=== PATIENT | male | born 1995 | race Caucasian/White ===

== ENCOUNTER 2017-01-30 14:35 | Inpatient (IN) | payer OTHER ==
[~2017-01-30] VITALS: Ht 188 cm; Wt 81.6 kg
--- NOTE | 2017-01-30 16:50 | NUR ---
Admission Note VS: BP: 122/74 HR: 78, SpO2: 98% RA, RR: 18, Temp: 98.2 Pain:0 Height:6'2" Weight: 180LB Allergies: NKA Pt is a 21 y/o male admitted to [facility] on 01/30/17 at 1650. Pt has been admitted for dependence of Heroin and Meth under the care of Dr Bailey. Pt denies suicidal and homicidal ideations at this time. Pt denies Chest Pain and SOB. Pt brought Seroquel 200mg with him. Pt reports taking it nightly to help him sleep. PT reports living at a sober living prior to his relapse. Upon assessment pt' presents with intact skin integrity. PT denies history of falls. COWS 2 upon admission for mild anxiety. A/Ox4 and able to answer questions necessary for the admission process. Pt denies previous hospitalizations and past medical history. Pt does not have a PCP. Pt is Full Code. VS WNL, Regular Diet. Pt reports paternal alcohol abuse. Pt denies hx of seizures. Pt denies any history of suicide attempts. Breathing is even and unlabored, SpO2 is 98% on RA. Pt ambulates with steady gait. Pt reports regular daily BM. LBM on 01/28/17. Pt reports that he smokes a pack a day. PT reports being unemployed at this time, pt states " I lost my job due to showing up to work while high". Dr. Bailey has been notified, pt has not been placed on a taper at this time and his symptoms will be managed by PRN medications. Urine has been collected for UDS. All needs have been met. Pt has been oriented to the room and the unit. All safety measures in place per hospital policy. Bed in lowest position, side rails up x2 and padded, call-light within reach. Will continue to monitor. Substance Abuse: Heroin: 1g IV daily for 5 days. Last use: 1g IV 01/30/17 at 1400 Meth: 3g IV and smoke for 5 days. Last use : 3g IV 01/29/17 in am Addendum: 01/30/17 at 1816 by PATRICK ROJO RN PT reports being at [facility] detox on 01/22/17. Pt reports receiving Phenobarbital there for 3 days. Last received on 01/24/17.
[2017-01-30] MEDS ORDERED: DICYCLOMINE HCL 20 MG TABLET PO PRN (17:00)
[2017-01-30] MEDS ORDERED: MAG HYDROX/AL HYDROX/SIMETH 30 ML LIQUID UDC PO PRN (17:00)
[2017-01-30] MEDS ORDERED: ONDANSETRON ODT 4 MG TAB.RAPDIS SL PRN (17:00)
[2017-01-30] MEDS ORDERED: MIRALAX 17 GM POWD.PACK PO PRN (17:00)
[2017-01-30] MEDS ORDERED: METHOCARBAMOL 750 MG TABLET PO PRN (17:00)
[2017-01-30] MEDS ORDERED: MAGNESIUM HYDROXIDE 30 ML LIQUID UDC PO PRN (17:00)
[2017-01-30] MEDS ORDERED: diphenhydrAMINE 50 MG CAPSULE PO PRN (17:00)
[2017-01-30] MEDS ORDERED: ACETAMINOPHEN 325 MG TABLET PO PRN (17:00)
[2017-01-30] MEDS ORDERED: LOPERAMIDE HCL 2 MG CAPSULE PO PRN ×2 (17:00)
[2017-01-30] MEDS ORDERED: CLONIDINE HCL 0.1 MG TABLET PO PRN (17:00)
[2017-01-30] MEDS ORDERED: ONDANSETRON 4 MG/2 ML VIAL IM PRN (17:00)
[2017-01-30] MEDS ORDERED: HYDROXYZINE PAMOATE 25 MG CAPSULE PO PRN (17:00)
[2017-01-30 17:34] LABS: *AMPHETAMINE, URINE NEGATIVE (NEGATIVE); *BARBITURATE, URINE POSITIVE (NEGATIVE); *CANNABINOID, URINE NEGATIVE (NEGATIVE); *COCCAINE, URINE NEGATIVE (NEGATIVE); *OPIATE, URINE POSITIVE (NEGATIVE); *PHENCYCLIDINE SCREEN,URINE NEGATIVE (NEGATIVE)
[2017-01-30 17:43] LABS: BASOPHILS # (AUTO) 0.1 K/uL (0.0-8.0); EOSINOPHILS # (AUTO) 0.2 K/uL (0.0-0.7); EOSINOPHILS % (AUTO) 3.4 % (0.0-7.0); HEMATOCRIT 46.8 % (40-50); HEMOGLOBIN 15.3 G/DL (14.0-18.0); LYMPHOCYTES # (AUTO) 1.9 K/UL (0.8-4.8); LYMPHOCYTES % (AUTO) 38.6 % (20.5-51.5); MEAN CORPUSCULAR HEMOGLOBIN 26.6 UUG (27.0-31.0); MEAN CORPUSCULAR HGB CONC 33 g/dL (32.0-37.0); MEAN CORPUSCULAR VOLUME 81.3 FL (82.0-92.0); MONOCYTES # (AUTO) 0.4 K/UL (0.1-1.30); MONOCYTES % (AUTO) 7.5 % (0.0-11.0); NEUTROPHILS # (AUTO) 2.4 K/UL (1.8-8.9); NEUTROPHILS % (AUTO) 49.5 % (38.5-71.5); PLATELET COUNT (AUTO) 319 K/UL (150-450); RED BLOOD CELL COUNT(AUTO) 5.76 MIL/UL (4.7-6.1)
[2017-01-30 17:53] LABS: ALANINE AMINOTRANSFERASE 21 U/L (16-63); ALKALINE PHOSPHATASE 78 U/L (50-136); ASPARTATE AMINOTRANSFERASE 18 U/L (15-37); BILIRUBIN,TOTAL 0.3 mg/dL (0.2-1.0); CARBON DIOXIDE 30 mmol/L (21-32); CHLORIDE 103 mmol/L (98-107); CREATININE 1.2 mg/dL (0.6-1.3); GLUCOSE 72 mg/dL (74-106); POTASSIUM 3.8 mmol/L (3.5-5.1); TOTAL PROTEIN, SERUM 7.9 g/dL (6.4-8.2); UREA NITROGEN, BLOOD 10 mg/dL (7-18)
[2017-01-30 17:59] LABS: ETHANOL < 3 MG/DL (0-0)
[2017-01-30] MEDS ORDERED: QUET200T PO (18:36)
--- NOTE | 2017-01-30 18:57 | NUR ---
End of Shift Endorsement given to nightshift nurse. Pt is a 21 y/o male admitted to [facility] on 01/30/17 at 1650. Pt has been admitted for dependence of Heroin and Meth under the care of Dr Bailey. Pt denies suicidal and homicidal ideations at this time. Pt denies Chest Pain and SOB. Pt brought Seroquel 200mg with him. Pt reports taking it nightly to help him sleep. PT reports living at a sober living prior to his relapse. Upon assessment pt' presents with intact skin integrity. PT denies history of falls. COWS 2 upon admission for mild anxiety. A/Ox4 and able to answer questions necessary for the admission process. Pt denies previous hospitalizations and past medical history. Pt does not have a PCP. Pt is Full Code. VS WNL, Regular Diet. Pt reports paternal alcohol abuse. Pt denies hx of seizures. Pt denies any history of suicide attempts. Breathing is even and unlabored, SpO2 is 98% on RA. Pt ambulates with steady gait. Pt reports regular daily BM. LBM on 01/28/17. Pt reports that he smokes a pack a day. PT reports being unemployed at this time, pt states " I lost my job due to showing up to work while high". Dr. Bailey has been notified, pt has not been placed on a taper at this time and his symptoms will be managed by PRN medications. Urine has been collected for UDS. All needs have been met. Pt has been oriented to the room and the unit. All safety measures in place per hospital policy. Bed in lowest position, side rails up x2 and padded, call-light within reach. Will continue to monitor. Substance Abuse: Heroin: 1g IV daily for 5 days. Last use: 1g IV 01/30/17 at 1400 Meth: 3g IV and smoke for 5 days. Last use : 3g IV 01/29/17 in am
--- NOTE | 2017-01-30 19:20 | NUR ---
START OF SHIFT Patient is 21-year-old male admitted on 01/30/17 for heroin and meth dependency. Patient denies any past medical history. Patient is currently not on any tapers, only PRN medications. Upon assessment, patient is alert and oriented x4, denying any distress or discomfort. Patient is on fall precautions, safety measures in place, call light within reach. Will continue to monitor. Addendum: 01/31/17 at 0609 by LATRICIA ERICKSON LVN Patient is FULL code status, NKA, and on regular diet.
[2017-01-30 20:00] VITALS: BP 116/74
[2017-01-30] MEDS ORDERED: BUPRENORPHINE HCL 2 MG TAB.SUBL SL PRN (21:00)
[2017-01-30] MEDS: GABAPENTIN 300 MG CAPSULE PO SCH (21:13)
[2017-01-30] MEDS: QUETIAPINE FUMARATE 200 MG TABLET PO SCH (21:13)
[2017-01-30] MEDS ORDERED: QUETIAPINE FUMARATE 200 MG TABLET ONE (21:25)
[2017-01-31] VITALS: BP 112/55
--- NOTE | 2017-01-31 | NUR ---
MIDNIGHT CIWA DEFERRED Patient is asleep, unable to score CIWA at this time. To be assessed when patient is awake, per protocol. Patient's breathing is even and unlabored. Safety measures in place, call light within reach, will continue monitor.
[2017-01-31 04:00] VITALS: BP 113/61
--- NOTE | 2017-01-31 07:10 | NUR ---
Start of Shift Endorsement received from nightshift nurse. Pt is a 21 y/o male admitted for heroin and meth dependence. Pt has not been placed on a taper. Pt will be treated by PRN medications. PT did not receive any PRN medications. Pt is tolerating the detox AEB COWS 2 at 1999. Pt reports sleeping 8 hours. VS WNL. Full Code. PT is alert and oriented x4. Pt is in STABLE condition at this time. Remains compliant with medication and diet regimen. All needs have been met, All safety measures in place per hospital policy. Bed in lowest position, side rails up x2, call-light within reach. Will continue to monitor
--- NOTE | 2017-01-31 07:20 | NUR ---
END OF SHIFT Patient is 21-year-old male admitted on 01/30/17 for heroin and meth dependency. Patient denies any past medical history. Patient is FULL code, NKA, and on regular diet. Last COWS score 2, no PRNs given during shift. Patient is currently not on any tapers. Patient slept a total of 8 hrs, intake of 500mL, void x1 stool x0. Patient is on fall precautions, safety measures in place, call light within reach. Will endorse to day shift.
[2017-01-31 08:00] VITALS: BP 134/72
[2017-01-31] MEDS ORDERED: TUBERCULIN,PURIF.PROT.DERIV. 5 TU/0.1 ML TEST ID ONE (09:00)
[2017-01-31] MEDS: GABAPENTIN 300 MG CAPSULE PO SCH ×2 (09:19→20:58)
[2017-01-31 12:00] VITALS: BP 116/65
[2017-01-31] MEDS: BUPRENORPHINE HCL 2 MG TAB.SUBL SL SCH ×3 (13:40→20:59)
[2017-01-31 16:00] VITALS: BP 134/83
--- NOTE | 2017-01-31 19:21 | NUR ---
End of Shift Endorsement given to nightshift nurse. Pt is a 21 y/o male admitted for heroin and meth dependence. Pt has been placed on a modified Subutex taper. Pt is moderately withdrawing at this time AEB COWS 12. PT did not receive any PRN medications. Pt participated in groups and activities. Intake: 3247, Void x4, BM x0. Pt reports sleeping 8 hours. VS WNL. Full Code. PT is alert and oriented x4. Pt is in STABLE condition at this time. Remains compliant with medication and diet regimen. All needs have been met, All safety measures in place per hospital policy. Bed in lowest position, side rails up x2, call-light within reach. Will continue to monitor
[2017-01-31 20:00] VITALS: BP 137/79
--- NOTE | 2017-01-31 20:00 | NUR ---
Start of Shift Pt is a 21 year old male admitted for Opiate dependence, placed modified Subutex taper. Pt reported using Heroin IV 1g/daily and methamphetamine 3g/daily. Pt denies any pat medical history. NKA, regular diet, fall precautions and full code. Upon assessment, pt reports feeling anxious, reports muscle aches, chills, tremors felt upon touch, skin clammy/flushed, pt unable to sit still, respirations even/unlabored, denies SOB/chest pain, denies n/v/d, medications due. Safety measures in place, call light within reach, side rails up x2, bed locked and in low position. Will continue to monitor
[2017-01-31] MEDS: QUETIAPINE FUMARATE 200 MG TABLET PO SCH (20:58)
[2017-02-01] VITALS: BP_SYST 110; BP_SYST 121; BP_DIAS 56; BP_DIAS 60
--- NOTE | 2017-02-01 04:00 | NUR ---
Pt refused to be woken up for 0400 VS. COWS deferred due to pt sleeping To assess COWS while pt is awake as ordered. Safety measures in place, will continue to monitor.
--- NOTE | 2017-02-01 04:00 | NUR ---
Pt refused to be woken up for 0400 VS. LEYLAWA deferred due to pt sleeping To assess COWS while pt is awake as ordered. Safety measures in place, will continue to monitor. Addendum: 02/01/17 at 0530 by MYRIAM ROMERO RN INCORRECT POST
--- NOTE | 2017-02-01 07:00 | NUR ---
End of Shift Pt is a 21 year old male admitted for Opiate dependence, placed modified Subutex taper. Pt reported using Heroin IV 1g/daily and methamphetamine 3g/daily. Pt denies any past medical history. NKA, regular diet, fall precautions and full code. During shift, pt reports feeling anxious, reported muscle aches, chills, tremors felt upon touch, skin clammy/flushed, pt unable to sit still - scheduled taper medications administered, COWS 7. No PRN medications administered during shift. Pt slept for 4 hours, intake of 1100 ml PO, voids x2 and stool x0. Safety measures in place, call light within reach, side rails up x2, bed locked and in low position. Endorsed to day shift nurse.
--- NOTE | 2017-02-01 07:20 | NUR ---
Start of Shift Endorsement received from nightshift nurse. Pt is a 21 y/o male admitted for heroin and meth dependence. Pt has been placed on a modified Subutex taper. Pt did not receive any PRN medications. Pt is tolerating the detox and moderately withdrawing AEB COWS 7 at midnight. Pt reports sleeping 4 hours. VS WNL. Full Code. PT is alert and oriented x4. Pt is in STABLE condition at this time. Remains compliant with medication and diet regimen. All needs have been met, All safety measures in place per hospital policy. Bed in lowest position, side rails up x2, call-light within reach. Will continue to monitor
[2017-02-01 08:00] VITALS: BP 125/75
[2017-02-01] MEDS: GABAPENTIN 300 MG CAPSULE PO SCH ×2 (08:50→21:32)
[2017-02-01] MEDS ORDERED: BUPRENORPHINE HCL 2 MG TAB.SUBL SL SCH ×2 (09:00→21:00)
[2017-02-01 12:00] VITALS: BP 136/86
[2017-02-01 12:11] LABS: HEPATITIS B SURFACE AG Negative (Negative)
[2017-02-01 16:00] VITALS: BP 131/85
--- NOTE | 2017-02-01 18:55 | NUR ---
End of Shift Endorsement given to nightshift nurse. Pt is a 21 y/o male admitted for heroin and meth dependence. Pt has been placed on a modified Subutex taper. Pt is mildly withdrawing at this time AEB COWS 2. PT did not receive any PRN medications. Pt participated in groups and activities. Intake: 2890, Void x3, BM x0. Educated pt on diet and medication regimen. VS WNL. Full Code. PT is alert and oriented x4. Pt is in STABLE condition at this time. Remains compliant with medication and diet regimen. All needs have been met, All safety measures in place per hospital policy. Bed in lowest position, side rails up x2, call-light within reach. Will continue to monitor
[2017-02-01 20:00] VITALS: BP 105/84
--- NOTE | 2017-02-01 20:00 | NUR ---
Start of Shift Received a 21 y/o male admitted 01/30/2017 for heroin and meth dependence. A&Ox4. Px has NKA, on Full Code, and on regular diet. Px has been placed on a modified Subutex taper. During the rounds at 2000, No complaints made. COWS 2. All safety measures in place per hospital policy. Bed in lowest position, side rails up x2, call-light within reach. We'll continue to monitor.
[2017-02-01] MEDS: QUETIAPINE FUMARATE 200 MG TABLET PO SCH (21:32)
[2017-02-02] VITALS: BP 121/60
--- NOTE | 2017-02-02 | NUR ---
COWS deferred COWS deferred due to the px is sleeping, to assess if the px is awake per doctor's order. Respirations are even and unlabored. We'll continue to monitor.
[2017-02-02 04:00] VITALS: BP 132/63
--- NOTE | 2017-02-02 07:18 | NUR ---
End of Shift Notes 21 y/o male admitted 01/30/2017 for heroin and meth dependence. A&Ox4. Px has NKA, on Full Code, and on regular diet. Px has been placed on a modified Subutex taper. During the shift, No complaints made. Last COWS 2 . Oral intake of 1,500 ml, voided 4x, no BM. Slept for 6 hrs. All safety measures in place per hospital policy. Bed in lowest position, side rails up x2, call-light within reach. We'll continue to monitor.
[2017-02-02 08:00] VITALS: BP 111/67
[2017-02-02] MEDS: IBUPROFEN 600 MG TABLET PO PRN ×2 (08:19→16:48)
[2017-02-02] MEDS: GABAPENTIN 300 MG CAPSULE PO SCH ×3 (08:19→21:49)
--- NOTE | 2017-02-02 08:19 | NUR ---
PRN MEDICATION ADMINISTRATION Pt reported joint and muscle aches in back, knees, elbows 11/05. Pt grimacing and rubbing sore areas. Pt given PRN Motrin and PRN Robaxin. Will reassess.
--- NOTE | 2017-02-02 08:20 | NUR ---
START OF SHIFT NOTE 21 year old admitted 01/30/17 for dependence and medical detox from Heroin and Meth. Full code, NKA, regular diet. No medical history, no history of seizure. On fall precautions. On modified Subutex taper. Received report from night RN. Pt last COWS of 2 at 8 pm. Slept 5.5 hours. No prn medication given by night RN. 0820 nursing rounds, pt alert and oriented x 4, appears anxious, reports pain 8/10 for generalized joint and muscle aches. RN will administer PRN Robaxin and Motrin. Will reassess. . COWS 9. Pt received Subutex 2 mg and Gabapentin scheduled am medications. Pt reports no BM x 3 days. Pt states he will take a PRN laxative later today. Bed in low position and locked, side rails up x 2, call light within reach. Will continue to monitor.
[2017-02-02] MEDS ORDERED: BUPRENORPHINE HCL 2 MG TAB.SUBL SL SCH (09:00)
--- NOTE | 2017-02-02 09:19 | NUR ---
PRN MEDICATION REASSESSMENT Pt reports decrease in pain from body aches to 4/10 after receiving Motrin and Robaxin PRN.
[2017-02-02 12:00] VITALS: BP 126/76
--- NOTE | 2017-02-02 13:02 | NUR ---
PRN MEDICATION ADMINISTRATION Pt reporting no BM x 3 days. Given PRN Miralax. Will reassess.
--- NOTE | 2017-02-02 13:49 | NUR ---
Therapist prompted client to attend daily group sessions. Client stated he was interested and would attend the next group.
--- NOTE | 2017-02-02 14:02 | NUR ---
PRN MEDICATION REASSESSMENT Pt received PRN Miralax at 1302 for reported no BM X 3 days. No BM yet at this time. Will continue to monitor.
[2017-02-02] MEDS ORDERED: IBUP-1955 PO (14:21)
[2017-02-02] MEDS ORDERED: HYDR-3895 PO (14:21)
[2017-02-02] MEDS ORDERED: METH-406 PO (14:21)
[2017-02-02] MEDS ORDERED: DICY20TA28 PO (14:21)
[2017-02-02] MEDS ORDERED: GABA-534 PO (14:21)
[2017-02-02] MEDS ORDERED: DIPH50CA37 PO (14:21)
[2017-02-02 16:00] VITALS: BP 138/72
--- NOTE | 2017-02-02 16:48 | NUR ---
PRN MEDICATION ADMINISTRATION Pt reporting general body aches 07/06. Given PRN motrin. Will reassess.
--- NOTE | 2017-02-02 19:00 | NUR ---
END OF SHIFT NOTE 21 year old admitted 01/30/17 for dependence and medical detox from Heroin and Meth. Full code, NKA, regular diet. No medical history, no history of seizure. On fall precautions. On modified Subutex taper. Last COWS 9. PRN Motrin given x 2 , PRN Robaxin given x 1 for body aches, both effective. Given Miralax for no BM x 3 days, no BM since medication given at 1300. Attending group. Report given to night RN. Bed in low position and locked, side rails up x 2, call light within reach.
[2017-02-02 20:00] VITALS: BP 120/70
--- NOTE | 2017-02-02 20:00 | NUR ---
Start of Shift Notes Received a 21 y/o male admitted 01/30/2017 for heroin and meth dependence. A&Ox4. Px has NKA, on Full Code, and on regular diet. Px has been placed on a modified Subutex taper. To be D/C tomorrow 02/03/2017. During the rounds at 2000, No complaints made. COWS 2. All safety measures in place per hospital policy. Bed in lowest position, side rails up x2, call-light within reach. We'll continue to monitor.
[2017-02-02] MEDS: QUETIAPINE FUMARATE 200 MG TABLET PO SCH (21:00)
--- NOTE | 2017-02-02 21:00 | NUR ---
Seroquel Refused Px refused to take Seroquel 200 mg as standing order. We'll continue to monitor.
--- NOTE | 2017-02-02 21:49 | NUR ---
PRN Milk of Magnesia Px verbalized no BM for 3 days. MOM 30 ml given PO as PRN med. We'll continue to monitor.
[2017-02-03] VITALS: BP 129/72
--- NOTE | 2017-02-03 07:15 | NUR ---
Start of Shift Endorsement received from nightshift nurse. Pt is a 21 y/o male admitted for heroin and meth dependence. Pt has been placed on a modified Subutex taper. Pt has completed the Subutex taper and has been scheduled for discharge today, 02/03/17. All discharge education has been provided, pt reports understanding. All discharge documentation has been completed. Pt is tolerating the detox AEB COWS 2 at midnight. Pt reports sleeping 6 hours. PT received PRN Milk of Magnesium, medication was effective. VS WNL. Full Code. PT is alert and oriented x4. Pt is in STABLE condition at this time. Remains compliant with medication and diet regimen. All needs have been met, All safety measures in place per hospital policy. Bed in lowest position, side rails up x2, call-light within reach. Will continue to monitor
--- NOTE | 2017-02-03 07:29 | NUR ---
End of Shift Notes Received a 21 y/o male admitted 01/30/2017 for heroin and meth dependence. A&Ox4. Px has NKA, on Full Code, and on regular diet. To be D/C tomorrow 02/03/2017. During the shift, Px refused to take Seroquel 200 mg as standing order. Px verbalized no BM for 3 days. MOM 30 ml given PO as PRN med. . Last COWS 2. Oral intake 1,400 ml, voided 2x, No BM. Slept for 5.5 hrs. All safety measures in place per hospital policy. Bed in lowest position, side rails up x2, call-light within reach. We'll continue to monitor.
[2017-02-03 08:00] VITALS: BP 135/78
[2017-02-03] MEDS: GABAPENTIN 300 MG CAPSULE PO SCH (08:01)
--- NOTE | 2017-02-03 09:44 | NUR ---
Discharge note PT has been discharged from [facility] PT is in Stable condition, VS WNL. Denies suicidal and homicidal ideations at this time . All documentation has been completed, paperwork signed and dated. Pt left with all of his belongings, medications and prescriptions. Pt has been discharged from [facility] on 02/03/17 at 0944. has been Notified.
== END 2017-02-03 09:44 | disposition home or self-care (01) | DRG 895 ==
LOC: SRC 15:54
PROVIDERS: ADMIT Internal Medicine; ATTEND Internal Medicine
PROC: HZ2ZZZZ Detoxification Services for Substance Abuse Treatment (ICD-10-PCS; principal; 2017-01-30)
PROC: HZ41ZZZ Group Counseling for Substance Abuse Treatment, Behavioral (ICD-10-PCS; 2017-01-31)
DX: F11.23 Opioid dependence with withdrawal (principal); F13.21 Sedative, hypnotic or anxiolytic dependence, in remission; F17.210 Nicotine dependence, cigarettes, uncomplicated; Z59.1 Inadequate housing; Z91.89 Other specified personal risk factors, not elsewhere classified; Z81.1 Family history of alcohol abuse and dependence; G47.00 Insomnia, unspecified
CPT/HCPCS: 36415; 70030-TC; 80307; 80345; 80361; 83735; 85025; 86580; 86592; 86705; 86803; 87340; 87806; G0480; Q0162

== ENCOUNTER 2017-02-19 15:22 | Inpatient (IN) | payer OTHER ==
[~2017-02-19] VITALS: Ht 188 cm; Wt 77.1 kg
[~2017-02-19 15:22] MED LIST: DICY20TA28 PO; DIPH50CA37 PO; GABA-534 PO; HYDR-3895 PO; IBUP-1955 PO; METH-406 PO; QUET200T PO
--- NOTE | 2017-02-19 15:55 | NUR ---
Pre-admission Note: Client is seen in intake at this time. Appears restless with hyperverbal speech. Alert and oriented x 4. Able to make his needs known. Educated patient on the admission process and patient was able to provide good verbal understanding. He denies any seizure history, but reveals history of insomnia. Allergic to cranberries, coffee and grapefruit. Client reports that he relapsed as soon as he was discharged from this facility and started using heroin and methamphetamine again. Will continue with the admission process when patient arrives on the unit. BP 128/87, Pulse 106, RR 21, O2 sat 98% RA, PL 0/10, Temp 98.2. COWS 2 due to pulse rate.
--- NOTE | 2017-02-19 16:02 | NUR ---
Admission Note: Admitted a 21 year old male under the care of Dr. Krishna Bailey who states that he is here to detox off of Heroin and Methamphatamine. He is alert and verbally responsive. Oriented x 4. Able to make his needs known. Respirations even and unlabored. No SOB noted. Skin warm and dry to touch. Body search done. No contraband was found. Skin search done. Noted with lesion on right nostril due to skin picking. Abdomen soft and non-distended. No complains of N/V/D or constipation noted at this time. Reports LBM 02/19/2017. Bladder non-distended. No complains of dysuria noted. Voids independently. Able to provide urine for UDS. Reports allergies to cranberry, coffee, and grapefruit. Wishes to be FULL CODE. Follows a regular diet at home. Denies having a PCP at this time. Denies seizure history. Longest period of sobriety was 90 days in September 2016. Patient appears acutely intoxicated at this time from heroin and methamphetamine without any evidence of withdrawal. Substance Use: 1. Heroin - since 17 years old. Intravenously injects 1 gram of Heroin daily x 16 days. Last use was on 02/19/2017 at 1000 0.5 grams 2. Methamphetamine - since 17 years old. Intravenously injects 0.5grams to 1 gram daily x 16 days. Last use was on 02/19/2017 at 1000. Treatment History: 1. Able to Change - September 2016 2. [facility] 01/30/2017 to 02/03/2017 Dr. Bailey made aware of patient's arrival in the unit. Orientation to the facility provided. Patient verbalized good understanding. On fall and seizure precautions. Will continue to monitor.
[2017-02-19 16:04] VITALS: BP 128/87
[2017-02-19] MEDS ORDERED: HYDROXYZINE PAMOATE 25 MG CAPSULE PO PRN (16:15)
[2017-02-19] MEDS ORDERED: MAGNESIUM HYDROXIDE 30 ML LIQUID UDC PO PRN (16:15)
[2017-02-19] MEDS ORDERED: MIRALAX 17 GM POWD.PACK PO PRN (16:15)
[2017-02-19] MEDS ORDERED: LOPERAMIDE HCL 2 MG CAPSULE PO PRN ×2 (16:15)
[2017-02-19] MEDS ORDERED: BUPRENORPHINE HCL 2 MG TAB.SUBL SL PRN (16:15)
[2017-02-19] MEDS ORDERED: ACETAMINOPHEN 325 MG TABLET PO PRN (16:15)
[2017-02-19] MEDS ORDERED: DICYCLOMINE HCL 20 MG TABLET PO PRN (16:15)
[2017-02-19] MEDS ORDERED: MAG HYDROX/AL HYDROX/SIMETH 30 ML LIQUID UDC PO PRN (16:15)
[2017-02-19] MEDS ORDERED: IBUPROFEN 600 MG TABLET PO PRN (16:15)
[2017-02-19] MEDS ORDERED: NEOMY/BACITRAC/POLYMI OINT 28.35 GM TUBE TOP PRN (17:00)
[2017-02-19 17:50] LABS: *AMPHETAMINE, URINE POSITIVE (NEGATIVE); *BARBITURATE, URINE NEGATIVE (NEGATIVE); *CANNABINOID, URINE NEGATIVE (NEGATIVE); *COCCAINE, URINE NEGATIVE (NEGATIVE); *OPIATE, URINE POSITIVE (NEGATIVE); *PHENCYCLIDINE SCREEN,URINE NEGATIVE (NEGATIVE)
[2017-02-19 18:36] LABS: BASOPHILS # (AUTO) 0.3 K/uL (0.0-8.0); BASOPHILS % (AUTO) 3.1 % (0.0-2.0); EOSINOPHILS # (AUTO) 0.2 K/uL (0.0-0.7); EOSINOPHILS % (AUTO) 2.5 % (0.0-7.0); HEMATOCRIT 47.6 % (40-50); HEMOGLOBIN 15.8 G/DL (14.0-18.0); LYMPHOCYTES # (AUTO) 2.6 K/UL (0.8-4.8); LYMPHOCYTES % (AUTO) 27.6 % (20.5-51.5); MEAN CORPUSCULAR HEMOGLOBIN 26.7 UUG (27.0-31.0); MEAN CORPUSCULAR HGB CONC 33 g/dL (32.0-37.0); MEAN CORPUSCULAR VOLUME 80.7 FL (82.0-92.0); MONOCYTES # (AUTO) 1.4 K/UL (0.1-1.30); MONOCYTES % (AUTO) 15.1 % (0.0-11.0); NEUTROPHILS # (AUTO) 4.8 K/UL (1.8-8.9); NEUTROPHILS % (AUTO) 51.7 % (38.5-71.5); PLATELET COUNT (AUTO) 304 K/UL (150-450); WHITE BLOOD COUNT (AUTO) 9.3 K/UL (4.0-11.2)
[2017-02-19 18:43] LABS: ALANINE AMINOTRANSFERASE 33 U/L (16-63); ALKALINE PHOSPHATASE 83 U/L (50-136); ASPARTATE AMINOTRANSFERASE 66 U/L (15-37); BILIRUBIN,TOTAL 0.9 mg/dL (0.2-1.0); CARBON DIOXIDE 32 mmol/L (21-32); CHLORIDE 97 mmol/L (98-107); CREATININE 1.5 mg/dL (0.6-1.3); GLUCOSE 98 mg/dL (74-106); MAGNESIUM 2.4 mg/dL (1.8-2.4); POTASSIUM 3.5 mmol/L (3.5-5.1); TOTAL PROTEIN, SERUM 8.6 g/dL (6.4-8.2); UREA NITROGEN, BLOOD 14 mg/dL (7-18)
[2017-02-19 18:45] LABS: ETHANOL < 3 MG/DL (0-0)
--- NOTE | 2017-02-19 19:00 | NUR ---
Start of Shift Patient Received. Patient is in his room awake, alert and verbally responsive. Breathing even and non labored. Patient is a 21 year old male admitted today 02/19/17 for Opiate Dependence under the care of Dr. Bailey. Patient is set to start a 4 day Subutex taper tomorrow 02/20/17 at 0900. PRN Medications administered for increased signs and symptoms of withdrawal. Patient verbalizes No drug allergies, but noted food allergies of Coffee, Cranberry, and grapefruit. He wishes to be full code, following a regular diet, placed on fall and seizure precautions. Skin noted with a small lesion to the right side of the nose. Past medical history of insomnia. No history of seizures noted. Per endorsement, Patient noted with admission COWS of 2. MRSA to be completed. Patient noted to be hyperactive. All needs attended to promptly. Will continue plan of care as ordered.
--- NOTE | 2017-02-19 19:01 | NUR ---
End of Shift Notes: Patient admitted today for opiate and methamphetamine dependence. He is placed on a 4-day Subutex taper that will be started tomorrow AM. VS monitored closely. No significant abnormalities noted. Withdrawal symptoms were closely monitored. COWS upon admission 2 due to elevated pulse. Patient still appears to be acutely intoxicated from heroin and methamphetamine. VS stable. Compliant with care and treatment. Will monitor closely.
[2017-02-19 19:17] LABS: BAND % (MANUAL) 1 % (0-10); EOSINOPHILS % (MANUAL) 1 % (0-8); LYMPHOCYTES % (MANUAL) 35 % (20-40); MONOCYTES % (MANUAL) 13 % (2-10)
[2017-02-19 19:18] LABS: NEUTROPHILS % (MANUAL) 50 % (42-75)
[2017-02-19 20:30] VITALS: BP 106/70
[2017-02-19] MEDS: GABAPENTIN 300 MG CAPSULE PO SCH (21:36)
[2017-02-19] MEDS: LORAZEPAM 1 MG TABLET PO PRN (21:36)
--- NOTE | 2017-02-19 21:36 | NUR ---
PRN Medication Administration Patient noted in his bed, awake, alert and verbally responsive. Breathing even and non labored. Patient is verbalizing increased nausea with episodes of emesis, increased anxiety, agitation, noted to be very restless. COWS noted to be 15. PRN Subutex 4mg and PRN Ativan 2mgn administered as per orders. All needs attended promptly. Will continue to monitor.
--- NOTE | 2017-02-19 22:30 | NUR ---
PRN Medication Reassessment Patient noted in his room still very restless, noted frequently shifting. No agitation verbalized. COWS noted to be 10. Encouraged patient attempt to relax, turn lights off, deep breathing exercises. Patient verbalized understanding and states "I'm just going to go get some fresh air." Will continue to monitor.
[2017-02-20 00:17] VITALS: BP 119/80
[2017-02-20] MEDS: ONDANSETRON 4 MG/2 ML VIAL IM PRN ×2 (00:22→22:21)
--- NOTE | 2017-02-20 00:25 | NUR ---
PRN Medication Administration Patient noted awake and verbalizing increased nausea with verbalizes 2 episodes of emesis. PRN Zofran IM administered. Patient verbalized of increased auditory hallucinations, anxiety, agitation, and restlessness. Will relay to [facility]. Will continue to monitor.
--- NOTE | 2017-02-20 00:50 | NUR ---
Start of Shift Patient Received. Patient is in his room awake, alert and verbally responsive. Breathing even and non labored. Patient is a 21 year old male admitted today 02/19/17 for Opiate Dependence under the care of Dr. Bailey. Patient is set to start a 4 day Subutex taper tomorrow 02/20/17 at 0900. PRN Medications administered for increased signs and symptoms of withdrawal. Patient verbalizes No drug allergies, but noted food allergies of Coffee, Cranberry, and grapefruit. He wishes to be full code, following a regular diet, placed on fall and seizure precautions. Skin noted with a small lesion to the right side of the nose. Past medical history of insomnia. No history of seizures noted. Per endorsement, Patient noted with admission COWS of 2. MRSA to be completed. Patient noted to be hyperactive. All needs attended to promptly. Will continue plan of care as ordered. Addendum: 02/20/17 at 0050 by BABAR VALENTINE LVN ENTERED IN ERROR
--- NOTE | 2017-02-20 00:52 | NUR ---
MD Communication: Patient noted to be agitated, pacing the hallways, unable to sit still. Patient reports auditory hallucinations, stating "I'm hearing female voices behind me." Dr Coffman contacted and new order received for Zyprexa Zydis 5mg HS, first dose now. Order entered on behalf of Dr Coffman as he is currently without computer access.
[2017-02-20] MEDS: OLANZAPINE ZYDIS 5 MG TAB.RAPDIS PO SCH ×2 (00:57→20:34)
--- NOTE | 2017-02-20 01:00 | NUR ---
MD Communication/ PRN Medication Administration MD Communication with new order for Zyprexa Zydis 5mg one time dose to be give now. Order noted, carried out, and administered as per order. Will continue to monitor.
--- NOTE | 2017-02-20 01:00 | NUR ---
PRN Medication Reassessment Patient is able to verbalize nausea and emesis has subsided. PRN Zofran noted to be effective. Will continue to monitor.
[2017-02-20] MEDS ORDERED: OLANZAPINE ZYDIS 5 MG TAB.RAPDIS ONE (01:10)
--- NOTE | 2017-02-20 02:00 | NUR ---
PRN Medication Reassessment Patient noted in bed, slowly falling asleep. Breathing even and non labored. PRN Zyprexa one time dose noted to be effective. Will continue to monitor.
--- NOTE | 2017-02-20 02:44 | NUR ---
PRN Medication Administration Patient noted awake and verbalizing increased heartburn. PRN Maalox administered as per order. Will continue to monitor.
--- NOTE | 2017-02-20 04:00 | NUR ---
Vitals Refused Patient noted in bed sleeping. Attempted to render vitals and patient noted to verbalize "No i just want to sleep." Vitals refused. Patient noted to fall back asleep. Will continue to monitor. Addendum: 02/20/17 at 0533 by BABAR VALENTINE LVN Amended: Links added.
--- NOTE | 2017-02-20 07:10 | NUR ---
End of Shift Patient is in his room sleeping. Breathing even and non labored. No signs of pain or discomfort noted. Patient is a 21 year old male admitted on 02/19/17 for Opiate Dependence under the care of Dr. Bailey. Patient is set to start a 4 day Subutex taper today02/20/17 at 0900. Patient verbalizes No drug allergies, but noted food allergies of Coffee, Cranberry, and grapefruit. Full Code, Regular Diet, placed on fall and seizure precautions. Skin noted with a small lesion to the right side of the nose. Past medical history of insomnia. Patient was given PRN Subutex 4mg for COWS of 15 and PRN Ativan 2mg for increased signs and symptoms of anxiety, restlessness and agitation. Patient then noted with episodes of auditory hallucinations. MD made aware with new order of Zyprexa 5mg x1 dose with medication noted to be effective. Last noted COWS 18. All needs attended to promptly. Will endorse to continue plan of care as ordered.
--- NOTE | 2017-02-20 07:11 | NUR ---
Start of Shift Notes: Received patient in his room. Alert and verbally responsive. Oriented x 4. Able to make his needs known. Appears drowsy when waking. Easily arousable. Respirations even and unlabored. No SOB noted. Skin warm and dry to touch. Abdomen soft and non-distended. BS (+) in all 4 quadrants. No complains of N/V/D or constipation noted. No complains of abdominal discomfort noted. Voids independently. Ambulatory ad sharyn with steady gait. Patient is a 21 year old male admitted for opiate and meth dependence who will be starting his 4-day Subutex taper as ordered. Prior to admission, patient was using 1 gram of Heroin IV daily x 16 days and Methamphetamine 0.5g to 1g IV daily x 16 days. Has past medical hx of insomnia. Allergic to coffee, grapefruit, and cranberries. Educated patient on the current plan of care for the day and his medication regimen. Encouraged oral fluid intake and encouraged group participation to learn new skills to prevent relapse. Will continue to monitor.
[2017-02-20 08:00] VITALS: BP 137/77
[2017-02-20] MEDS: LORAZEPAM 1 MG TABLET PO PRN ×3 (08:45→20:35)
[2017-02-20] MEDS: GABAPENTIN 300 MG CAPSULE PO SCH ×2 (08:45→20:35)
[2017-02-20] MEDS: BUPRENORPHINE HCL 2 MG TAB.SUBL SL SCH ×3 (08:45→20:34)
--- NOTE | 2017-02-20 08:45 | NUR ---
Ativan 2 mg PO given: COWS 16, patient is unable to sit still. Agitated, with pulse of 101. Frequently shifting, pacing, and appears anxious. Speech is hyperverbal. Denies any AV hallucinations. No S.I or H/I noted. Ativan 2 mg PO given for agitation and increased s/s of withdrawal.
[2017-02-20] MEDS ORDERED: TUBERCULIN,PURIF.PROT.DERIV. 5 TU/0.1 ML TEST ID ONE (09:00)
--- NOTE | 2017-02-20 09:45 | NUR ---
Re-assessment: Patient appears sedated. Attempting to fall asleep. Fidgeting while in bed. PRN Ativan 2 mg PO mildly effective. Less agitation noted.
[2017-02-20 12:00] VITALS: BP 134/80
--- NOTE | 2017-02-20 13:16 | NUR ---
Therapist prompted client to come to group, client agreed to come today.
--- NOTE | 2017-02-20 14:05 | NUR ---
Ativan 1 mg PO given: Patient continues to be disorganized, restless, pacing from one end of the room to the other, with hyperverbal speech and fidgeting. Rest and relaxation was encouraged. Medicated patient with Ativan 1 mg PO as ordered. Will monitor for effectiveness.
--- NOTE | 2017-02-20 15:05 | NUR ---
Re-assessment: Ativan 1 mg Patient is observed to be laying in bed with eyes closed. RR 15. Breathing even and unlabored. Easily aroused but falls back asleep. PRN Ativan effective.
[2017-02-20 16:00] VITALS: BP 123/80
--- NOTE | 2017-02-20 16:00 | NUR ---
COWS Deferred: Patient is observed to be laying in bed with eyes closed. Breathing even and unlabored. RR 15. Arousable. COWS deferred at this time. Addendum: 02/20/17 at 1625 by LINDA ROBBINS LVN Amended: Links added.
[2017-02-20] MEDS ORDERED: BUPRENORPHINE HCL 2 MG TAB.SUBL SL PRN (17:30)
[2017-02-20] MEDS ORDERED: QUETIAPINE FUMARATE 200 MG TABLET PO SCH (18:00)
--- NOTE | 2017-02-20 18:45 | NUR ---
IV line inserted: New orders obtained from MD Bailey for patient to have 1000cc of NS x 1 via bolus for hydration. IV access obtained to patient's right forearm. Utilized 22 gauge via aseptic technique x 1 attempt with good blood return. Procedure explained prior to doing so. Patient verbalized good understanding. Tolerated procedure well.
[2017-02-20] MEDS ORDERED: IV NS 1000 ML 1,000 ML IV ONE (19:00)
--- NOTE | 2017-02-20 19:11 | NUR ---
End of Shift Notes: Patient initiated his 4-day Subutex taper as ordered. No adverse reactions noted. Patient is tolerating taper well. VS monitored closely. No significant abnormalities noted. Withdrawal symptoms were closely monitored. Initial COWS 16, patient presented with myalgia, pupil dilation, restlessness, fidgeting, anxiety, agitation, and runny nose. Medicated patient with Ativan 2 mg PO at 0845 with help after 1 hour, and Ativan 1 mg PO at 1405 with mild help. Sleep encouraged and oral fluid intake pushed as tolerated. Patient noted with episodes of severe restlessness and pacing during the day. Noted with episodes of not allowing meds to work. Kept in a safe environment. No injuries noted. IV site to right forearm patent and intact. Flushed adequately per unit's protocol. Last COWS 13 at 1200. Per patient, Subutex has been effective in reducing his withdrawal symptoms. All needs met and attended. Will continue to monitor closely.
--- NOTE | 2017-02-20 19:30 | NUR ---
START OF SHIFT Pt is a 21 y/o male admitted on 02/19/17 for opiate and meth dependence. Pt was dependent on 1 gram heroin IV daily and meth IV 0.5-1 gram daily for 16 days. Pt was recently admitted to [facility] at beginning of this month, but relapsed. Pt is full code, regular diet, allergic to cranberry, coffee, and grapefruit and fall precautions. Denies hx of w/d related seizures. Pt reports PMH of insomnia. Pt is on a 4 day Subutex taper that started today, tolerating well. Pt also has PRN Ativan available per orders. Upon assessment pt is walking around hallways and presents with restlessness, anxiety, body aches, intermittent nausea, decreased appetite, anhedonia, intermittent sweats and chills. Denies A/V hallucinations at this time. Per day shift nurse and pt, he had auditory hallucinations the previous night. Respirations 18, even and unlabored. Reports vomiting during day shift, denies diarrhea. Denies chest pain or SOB. IVF and medications due. IV placed on right forearm 22 gauge, IV site patent and intact. No redness or swelling present, denies pain at site. Safety measures in place. Call light within reach. Will continue to monitor.
[2017-02-20 20:00] VITALS: BP 117/75
[2017-02-20] MEDS: ONDANSETRON ODT 4 MG TAB.RAPDIS SL PRN (20:33)
--- NOTE | 2017-02-20 20:33 | NUR ---
PRN ZOFRAN SL AND ROBAXIN ADMINISTRATION Pt reports vomiting multiple times during day shift and states he gets nausea that "comes and goes," which gets worse in "certain positions" or when standing. Pt vomited x 1 just prior to administration of Zofran 4 mg. Pt also reports body aches 10/05. Waited 10 minutes after Zofran until administration of Robaxin, pt states, "I will be able to hold it down, I feel better." Safety measures in place. Call light within reach. Will continue to monitor.
[2017-02-20] MEDS: METHOCARBAMOL 750 MG TABLET PO PRN (20:34)
[2017-02-20] MEDS: QUETIAPINE FUMARATE 200 MG TABLET PO SCH (20:35)
--- NOTE | 2017-02-20 21:03 | NUR ---
OK KICTHEN REASSESSMENT Pt reports improvement in nausea, but states it still "comes and goes." Denies any further episodes of vomiting. Safety measures in place. Call light within reach. Will continue to monitor.
--- NOTE | 2017-02-20 21:33 | NUR ---
OK SANCHEZ REASSESSMENT Pt reports improvement in body aches, reduced to 5/10. Safety measures in place. Call light within reach. Will continue to monitor.
--- NOTE | 2017-02-20 22:21 | NUR ---
PRN ZOFRAN INJ ADMINISTRATION Pt reports having approximately 4 episodes of vomiting prior to notification of nurse. Pt had 3 witnessed episodes of vomiting just prior to administration of Zofran inj. Safety measures in place. Call light within reach. Will continue to monitor.
[2017-02-20] MEDS: CLONIDINE HCL 0.1 MG TABLET PO PRN (22:47)
--- NOTE | 2017-02-20 22:47 | NUR ---
PRN VISTARIL AND CLONIDINE ADMINISTRATION Pt presents with restlessness, inability to sit still, anxiety, moderate agitation, sweats. BP 113/73 HR 124. Vistaril and Clonidine administered per orders. Encouraged client to stay in bed or use call light if he wants to get up. Safety measures in place. Call light within reach. Will continue to monitor.
--- NOTE | 2017-02-20 22:51 | NUR ---
PRN ZOFRAN REASSESSMENT Pt reports improvement in nausea, denies further episodes of vomiting. Safety measures in place. Call light within reach. Will continue to monitor.
--- NOTE | 2017-02-20 23:00 | NUR ---
VISUAL HALLUCINATIONS Pt presents with visual hallucinations and states "There was just someone in the bathroom." Denies auditory hallucinations at this time. Pt alert and oriented x 4. Pt also presents with unsteady gait. 1:1 sitter initiated. Pt refused continuation of IVF. notified. Safety measures in place. Will continue to monitor.
--- NOTE | 2017-02-20 23:47 | NUR ---
PRN VISTARIL AND CLONIDINE REASSESSMENT Pt has improvement in restlessness and is able to sit still. Anxiety, agitation and sweats improved. Pt able to lay in bed with eyes closed. 1:1 sitter at bedside. Safety measures in place. Will continue to monitor.
[2017-02-21] VITALS: BP 113/73
[2017-02-21 04:00] VITALS: BP 111/75
--- NOTE | 2017-02-21 04:00 | NUR ---
COWS DEFERRED Pt is laying in bed with eyes closed, snoring. COWS deferred, to be assessed when pt is awake per orders. Respirations 18, even and unlabored. Safety measures in place. Call light within reach. Will continue to monitor.
--- NOTE | 2017-02-21 07:20 | NUR ---
END OF SHIFT Pt is a 21 y/o male admitted on 02/19/17 for opiate and meth dependence. Pt was dependent on 1 gram heroin IV daily and meth IV 0.5-1 gram daily for 16 days. Pt was recently admitted to [facility] at beginning of this month, but relapsed. Pt is full code, regular diet, allergic to cranberry, coffee, and grapefruit and is on fall precautions. Denies hx of w/d related seizures. Pt reports PMH of insomnia. Pt is on a 4 day Subutex taper that started 02/20/17, tolerating well. Pt also has PRN Ativan available. Pt presented with restlessness, inability to sit still, anxiety, agitation, body aches, decreased appetite, anhedonia, intermittent sweats, nausea, multiple episodes of vomiting and chills. Pt denied A/V hallucinations at beginning of shift. At approximately 2300, pt presented with visual hallucinations, unsteady gait and dizziness. IVF initiated at 2000, but pt refused continuation of IFV at 2300. IV placed on right forearm 22 gauge, IV site patent and intact. No redness or swelling present, denies pain at site. Pt placed on 1:1 sitter with room restriction for safety. Scheduled medications and PRN Ativan 1 mg, Robaxin, Zofran SL, Zofran inj, Clonidine and Vistaril administered, effective in S/S of withdrawal AEB COW 16 lowered to 13. Pt slept 6 hours. Intake 473 ml, void x 1, stool x 0. Safety measures in place. 1:1 sitter at bedside. Pts needs have been met. Endorsed to day shift nurse.
--- NOTE | 2017-02-21 07:21 | NUR ---
Start of Shift Notes: Received patient in his room with a 1:1 Alert and verbally responsive. Oriented x 4. Denies AV hallucinations. Appears drowsy when waking. Easily arousable. Respirations even and unlabored. No SOB noted. Skin warm and dry to touch. Abdomen soft and non-distended. BS (+) in all 4 quadrants. No complains of N/V/D or constipation noted. No complains of abdominal discomfort noted. Voids independently. Ambulatory ad sharyn with steady gait. Patient is a 21 year old male admitted for opiate and meth dependence who was placed on a 4-day Subutex taper as ordered. Prior to admission, patient was using 1 gram of Heroin IV daily x 16 days and Methamphetamine 0.5g to 1g IV daily x 16 days. Has past medical hx of insomnia. Allergic to coffee, grapefruit, and cranberries. IV site to right hand with 22 g patent and intact. Educated patient on the current plan of care for the day and his medication regimen. Encouraged oral fluid intake and encouraged group participation to learn new skills to prevent relapse. Will continue to monitor.
[2017-02-21 08:00] VITALS: BP 114/84
[2017-02-21 08:24] LABS: CREATININE 1.4 mg/dL (0.6-1.3); MAGNESIUM 2.4 mg/dL (1.8-2.4)
[2017-02-21] MEDS: GABAPENTIN 300 MG CAPSULE PO SCH ×2 (08:42→21:48)
[2017-02-21] MEDS: LORAZEPAM 1 MG TABLET PO PRN (08:42)
[2017-02-21] MEDS: METHOCARBAMOL 750 MG TABLET PO PRN (08:42)
--- NOTE | 2017-02-21 08:42 | NUR ---
Ativan 1 mg/Robaxin 750 mg PO given: COWS 10, patient appears agitated and anxious, restless, frequently shifting body movements. Hands restless, constantly fidgeting. Pulse 100. Denies S/I or H/I. No AV hallucinations. 1:1 at bedside within arms reach. Kept in a safe environment. Also complained of 5/10 body aches. Medicated patient with Ativan 1 mg PO and Robaxin 750mg PO as ordered. Will monitor for effectiveness.
[2017-02-21] MEDS ORDERED: BUPRENORPHINE HCL 2 MG TAB.SUBL SL SCH (09:00)
[2017-02-21 09:09] LABS: HEPATITIS B SURFACE AG Negative (Negative)
--- NOTE | 2017-02-21 09:42 | NUR ---
Re-assessment: Patient is observed to be laying in bed with eyes closed. Easily arousable. Breathing even and unlabored. PRN Robaxin and Ativan appears to be effective.
--- NOTE | 2017-02-21 11:10 | NUR ---
Psych MD communication: Dr. Coffman came in and evaluated the patient at this time. Informed Dr. Coffman of patient's current condition. Per Dr. Coffman, patient is still under "meth psychosis and keep the patient on 1:1 at this time." Per MD, he will enter in Seroquel orders at this time. Patient education provided and was in agreement.
[2017-02-21 12:00] VITALS: BP 112/73
[2017-02-21] MEDS: QUETIAPINE FUMARATE 100 MG TABLET PO SCH (12:04)
[2017-02-21] MEDS: ONDANSETRON ODT 4 MG TAB.RAPDIS SL PRN ×2 (13:09→21:47)
[2017-02-21] MEDS: CLONIDINE HCL 0.1 MG TABLET PO PRN (13:09)
--- NOTE | 2017-02-21 13:09 | NUR ---
Clonidine 0.1mg PO/Zofran 4 mg SL given: Patient noted with anxiety, agitation, BP 136/91, restless. Also noted with x 1 episode of emesis and nausea. Medicated patient with Zofran 4 mg & Clonidine 0.1mg PO as ordered/ Will monitor for effectiveness
--- NOTE | 2017-02-21 13:58 | NUR ---
Therapist prompted client about group times. Client stated he would attend all groups today.
[2017-02-21] MEDS: BUPRENORPHINE HCL 2 MG TAB.SUBL SL SCH ×2 (14:07→21:51)
--- NOTE | 2017-02-21 14:09 | NUR ---
Re-assessment: Clonidine and Zofran Emesis ceased. No nausea reported. Tolerated lunch tray well. Less anxiety, less agitation and less restlessness noted.
[2017-02-21 16:00] VITALS: BP 116/87
--- NOTE | 2017-02-21 19:01 | NUR ---
End of Shift Notes: Patient continues to be on his 4-day Subutex taper as ordered. No adverse reactions noted. Patient is tolerating taper well. VS monitored closely. No significant abnormalities noted. Withdrawal symptoms were closely monitored. Initial COWS 10, patient presented with myalgia, restlessness, fidgeting, anxiety, and agitation. Medicated patient with Ativan 1 mg PO at 0842 with help after 1 hour, and Robaxin 750 mg PO with help after 1 hour. At 1309 patient was medicated with Juan F and Clonidine for nausea, vomiting and anxiety and agitation with help after 1 hour. Sleep encouraged and oral fluid intake pushed as tolerated. Patient noted with episodes of severe restlessness and pacing during the day. On 1:1 for AV hallucinations and unsteady gait. Noted with visual hallucinations during the day. Gait unsteady at times. Denies S/I or H/I. Patient will be started on Seroquel 100 mg daily for s/s of psychosis. Kept in a safe environment. No injuries noted. Last COWS 3 . Per patient, Subutex has been effective in reducing his withdrawal symptoms. All needs met and attended. Will continue to monitor closely.
--- NOTE | 2017-02-21 19:30 | NUR ---
START OF SHIFT Pt is a 21 y/o male admitted on 02/19/17 for opiate and meth dependence. Pt was dependent on 1 gram heroin IV daily and meth IV 0.5-1 gram daily for 16 days. Pt was recently admitted to [facility] at beginning of this month, but relapsed. Pt is full code, regular diet, allergic to cranberry, coffee, and grapefruit and fall precautions. Denies hx of w/d related seizures. Pt reports PMH of insomnia. Pt is on a 4 day Subutex taper that started 02/20/17. Pt also has PRN Ativan available per orders. Pt is on a 1:1 for safety d/t hx of hallucinations and unsteady gait. Upon assessment pt is walking around hallways and presents with restlessness, inability to sit still, anxiety, agitation, body aches, nausea, decreased appetite, anhedonia, sweats, chills, increased pupil size, intermittent tremors and tachycardia. IV discontinued 02/21/17, catheter to be taken out. Denies A/V hallucinations at this time. Respirations 16, even and unlabored. Reports vomiting during day shift, denies diarrhea. Denies chest pain or SOB. Safety measures in place. Call light within reach. Will continue to monitor.
[2017-02-21 20:00] VITALS: BP 111/60
--- NOTE | 2017-02-21 21:00 | NUR ---
PERIPHERAL IV LINE D/C Peripheral IV line D/C per orders, removed catheter. No swelling or pain present.
--- NOTE | 2017-02-21 21:47 | NUR ---
PRN MOTRIN 600 MG AND ZOFRAN SL ADMINISTRATION Pt reports headache and generalized body aches 6/10 and nausea. Reports having episodes of vomiting during day shift. Safety measures in place. 1:1 sitter at bedside. Will continue to monitor.
[2017-02-21] MEDS: OLANZAPINE ZYDIS 5 MG TAB.RAPDIS PO SCH (21:48)
[2017-02-21] MEDS: QUETIAPINE FUMARATE 200 MG TABLET PO SCH (21:48)
--- NOTE | 2017-02-21 22:17 | NUR ---
OK ONOFRE REASSESSMENT Pt had 3 episodes of vomiting shortly after administration, but states that after 30 minutes, his nausea and vomiting improved. Safety measures in place. 1:1 sitter at bedside. Will continue to monitor.
--- NOTE | 2017-02-21 22:47 | NUR ---
PRN MOTRIN REASSESSMENT Pt reports mild improvement in body aches and headache. Safety measures in place. 1:1 sitter at bedside. Will continue to monitor.
[2017-02-22] VITALS: BP 109/82
[2017-02-22 04:00] VITALS: BP 106/68
--- NOTE | 2017-02-22 04:00 | NUR ---
COWS DEFERRED Pt is laying in bed with eyes closed, COWS deferred, to be assessed when pt is awake per orders. Respirations 18, even and unlabored. 1:1 sitter at bedside. Will continue to monitor.
--- NOTE | 2017-02-22 07:02 | NUR ---
END OF SHIFT Pt is a 21 y/o male admitted on 02/19/17 for opiate and meth dependence. Pt was dependent on 1 gram heroin IV daily and meth IV 0.5-1 gram daily for 16 days. Pt was recently admitted to [facility] at beginning of this month, but relapsed. Pt is full code, regular diet, allergic to cranberry, coffee, and grapefruit and fall precautions. Denies hx of w/d related seizures. Pt reports PMH of insomnia. Pt is on a 4 day Subutex taper that started 02/20/17, tolerating well. Pt also has PRN Ativan available per orders. Pt is on a 1:1 for safety d/t hx of hallucinations and unsteady gait. Pt presented with restlessness, inability to sit still, anxiety, agitation, body aches 6/10, headache, nausea, multiple episodes of vomiting, decreased appetite, anhedonia, sweats, chills, increased pupil size, intermittent tremors and tachycardia. Denies A/V hallucinations. Scheduled medications and PRN Motrin and Zofran SL administered, effective in S/S of withdrawal AEB COWS 15 lowered to COWS 12. Pt slept 6 hours. Intake 1496 ml, void x 4, stool x 0. Safety measures in place. 1:1 sitter at bedside. Pts needs have been met. Endosed to day shift nurse.
--- NOTE | 2017-02-22 07:33 | NUR ---
BEGINNING OF SHIFT Patient endorsement report received from retail shift supervisor nurse, all pertinent information discussed. Patient is a 21 year old male admitted on: 02/19/2017 with admitting Dx: Opiate Dependence, With substance use of: methamphetamine. Patient is currently with ongoing 4 day Subutex taper as ordered and is currently on day 3 of taper. continues under close observation,received PRN: Motrin and Zofran, medication effective. Patient continues on 1: 1 sitter for safety precautions s/p episodes of hallucinations. Patient with last cow score of: 12. Patient slept for 6 hours. Patient received awake, alert and oriented x4, educated patient regarding plan of care for the day and medication regimen with good verbal understanding. Safety measures in place. call light kept with in reach, Fall and seizure precautions in place. will continue to monitor closely.
[2017-02-22 08:38] VITALS: BP 99/61
[2017-02-22] MEDS: GABAPENTIN 300 MG CAPSULE PO SCH ×3 (08:41→20:40)
[2017-02-22] MEDS: QUETIAPINE FUMARATE 100 MG TABLET PO SCH (08:41)
[2017-02-22] MEDS: BUPRENORPHINE HCL 2 MG TAB.SUBL SL SCH ×3 (08:41→20:41)
[2017-02-22 13:38] VITALS: BP 118/74
--- NOTE | 2017-02-22 17:20 | NUR ---
Therapist prompted client to attend group today. Client agreed to attend.
[2017-02-22 17:30] VITALS: BP 134/89
--- NOTE | 2017-02-22 18:45 | NUR ---
END OF SHIFT Patient alert and oriented x4, patient compliant with therapeutic plan of care. Patient with admitting Dx: Opiate dependence, Patient continues on 4 day Subutex taper as ordered, currently on day 2 of taper. Patients 1: 1 sitter was discontinued during shift, as per MD. Patient currently ambulating with steady gait, no further episodes of auditory/visual hallucinations. 0900 assessment patient presented with: difficulty sitting still, flushed, dilated pupils, mild bone and joint aches, moist eyes, tremors that can be felt but not seen, and mild anxiety with cow score of: 8; 1300 assessment patient presented with: c/o chills, difficulty sitting still, dilated pupils, mild bone and joint aches, moist eyes, tremors that can be felt but not seen, and mild anxiety with cow score of: 7; 1700 assessment patient presented with: heart rate of 96, difficulty sitting still, dilated pupils, mild bone and joint aches, and mild anxiety with cow score of: 5. Detox medication effective at reducing withdrawal symptoms. Patient encouraged adequate PO fluid intake as tolerated, Encouraged to attend group therapies/sessions to learn new coping skills to prevent relapse, noted attending and participating. denies any SI/HI. Patient administered no PRNs during shift. Patients safety measures are in place. all needs met and rendered. Patient endorsement report given to building serviceman nurse, all pertinent information discussed. Safety measurers in place. will continue to monitor.
--- NOTE | 2017-02-22 19:30 | NUR ---
START OF SHIFT Pt is a 21 y/o male admitted on 02/19/17 for opiate and meth dependence. Pt was dependent on 1 gram heroin IV daily and meth IV 0.5-1 gram daily for 16 days. Pt was recently admitted to [facility] at beginning of this month, but relapsed. Pt is full code, regular diet, allergic to cranberry, coffee, and grapefruit and fall precautions. Denies hx of w/d related seizures. Pt reports PMH of insomnia. Pt is on a 4 day Subutex taper that started 02/20/17. Pt was taken off 1:1 d/t improvement in unsteady gait and denies hallucinations. Upon assessment pt is walking around hallways and presents with restlessness, inability to sit still, anxiety, agitation, body aches, nausea, recently vomiting, decreased appetite, anhedonia, intermittent sweats, intermittent chills, increased pupil size, intermittent tremors and tachycardia. Continues to deny A/V hallucinations. Respirations 20, even and unlabored. Denies chest pain or SOB. Safety measures in place. Call light within reach. Will continue to monitor.
[2017-02-22 20:00] VITALS: BP 107/83
[2017-02-22] MEDS: ONDANSETRON ODT 4 MG TAB.RAPDIS SL PRN (20:38)
[2017-02-22] MEDS: OLANZAPINE ZYDIS 5 MG TAB.RAPDIS PO SCH (20:39)
[2017-02-22] MEDS: METHOCARBAMOL 750 MG TABLET PO PRN (20:40)
[2017-02-22] MEDS: QUETIAPINE FUMARATE 200 MG TABLET PO SCH (20:40)
--- NOTE | 2017-02-22 20:40 | NUR ---
PRN ZOFRAN SL AND ROBAXIN ADMINISTRATION Pt reports nausea with unwitnessed vomiting. Pt also reports body aches 09/05. Safety measures in place. Call light within reach. Will continue to monitor.
--- NOTE | 2017-02-22 21:10 | NUR ---
PRN ZOFRAN REASSESSMENT Pt reports nausea improved, but still intermittently present. No further episodes of vomiting. Safety measures in place. Will continue to monitor.
--- NOTE | 2017-02-22 21:40 | NUR ---
PRN ROBAXIN REASSESSMENT Pt reports improvement in body aches to tolerable level. Safety measures in place. Will continue to monitor.
--- NOTE | 2017-02-23 | NUR ---
COW DEFERRED AND VITALS REFUSED Pt is laying in bed with eyes closed. COW deferred, to be assessed when pt is awake per orders. Vitals refused. Respirations 18, even and unlabored. Safety measures in place. Call light within reach. Will continue to monitor.
--- NOTE | 2017-02-23 07:08 | NUR ---
END OF SHIFT Pt is a 21 y/o male admitted on 02/19/17 for opiate and meth dependence. Pt was dependent on 1 gram heroin IV daily and meth IV 0.5-1 gram daily for 16 days. Pt was recently admitted to [facility] at beginning of this month, but relapsed. Pt is full code, regular diet, allergic to cranberry, coffee, and grapefruit and fall precautions. Denies hx of w/d related seizures. Pt reports PMH of insomnia. Pt is on a 4 day Subutex taper that started 02/20/17. Pt presented with restlessness, inability to sit still, anxiety, agitation, body aches, nausea, recently vomiting, decreased appetite, anhedonia, intermittent sweats, intermittent chills, increased pupil size, intermittent tremors and tachycardia. Scheduled medications and PRN Zofran SL and Robaxin administered, effective in S/S of withdrawal as verbalized by pt. Last COW 14 at 2000. Pt slept 8 hours. Intake 1700 ml, void x 4, stool x 0. Safety measures in place. Call light within reach. Pts needs have been met. Endorsed to day shift nurse.
--- NOTE | 2017-02-23 07:45 | NUR ---
START OF SHIFT Rcvd endorsement from ongoing nurse, client is in room, he is a/o x4. Client presents with anxious mood, flat affect. He reports body aches, chills, colds, stomach cramps, and fatigue. Encourage client to attend to group therapy for skills to maintain sober. Encourage client to increase PO fluid intake as tolerated to facilitate detox. Client is a 21 y/o male, admitted to [facility] for withdrawal from heroin. He is on a 4 day Subutex taper, tolerating well (day 4). Last COWS 14 @ 1999. PRN Robaxin 750mg PO for generalized aches, PRN Zofran 4mg SL for nausea, noted effective. Client slept 6 hrs. He denies a hx of withdrawal-induced seizures, Client reports NKA, full code, regular diet. Side rails x 2 up, universal precautions. Call light within reach.
[2017-02-23 08:55] VITALS: BP 112/79
[2017-02-23] MEDS ORDERED: BUPRENORPHINE HCL 2 MG TAB.SUBL SL SCH (09:00)
[2017-02-23] MEDS: GABAPENTIN 300 MG CAPSULE PO SCH ×3 (09:08→21:39)
[2017-02-23] MEDS: QUETIAPINE FUMARATE 100 MG TABLET PO SCH (09:08)
[2017-02-23] MEDS: METHOCARBAMOL 750 MG TABLET PO PRN (09:08)
--- NOTE | 2017-02-23 09:08 | NUR ---
Administered Subutex 2mg SL, client coughed, and when primary nurse asked to show the Subutex, he refused to show the medication, after a minute he said, "Ok, I swallowed it."Nurse called [facility] for room search, and the Subutex 2mg was on his bed. Dr. Bailey was notified. NNO at this time.
--- NOTE | 2017-02-23 09:08 | NUR ---
PRN Robaxin 750mg PO administered for generalized aches 09/05. Call light within reach.
--- NOTE | 2017-02-23 10:08 | NUR ---
reassessment PRN Robaxin 750mg PO client repots generalized aches 0/10. Call light within reach.
[2017-02-23 12:45] VITALS: BP 114/68
[2017-02-23 16:55] VITALS: BP 114/62
[2017-02-23] MEDS ORDERED: QUET200T PO (19:38)
[2017-02-23] MEDS ORDERED: HYDR-3895 PO (19:38)
[2017-02-23] MEDS ORDERED: METH-406 PO (19:38)
[2017-02-23] MEDS ORDERED: DICY20TA28 PO (19:38)
[2017-02-23] MEDS ORDERED: GABA-534 PO (19:38)
[2017-02-23] MEDS ORDERED: QUET100T PO (19:38)
[2017-02-23] MEDS ORDERED: IBUP-1955 PO (19:38)
[2017-02-23] MEDS ORDERED: OLAN5TAB6 PO (19:38)
--- NOTE | 2017-02-23 19:44 | NUR ---
END OF SHIFT Client is a 21 y/o male, admitted to [facility] for withdrawal from heroin. He is on a 4 day Subutex taper, tolerating well (day 4). Last COWS 14 @ 1999. PRN Robaxin 750mg PO for generalized aches, noted effective. Client is compliant with group therapy. He denies a hx of withdrawal-induced seizures, Client reports NKA, full code, regular diet. Side rails x 2 up, universal precautions. Call light within reach.
[2017-02-23 20:00] VITALS: BP 133/77
--- NOTE | 2017-02-23 20:00 | NUR ---
Start of Shift Pt is a 21 year old male admitted for Heroin/meth dependence, placed on 4 day Subutex taper, completed. Pt reported use of Heroin IV 1g/daily and Methamphetamine 0.5-1g/daily. PMH: Insomnia. Pt reports allergies to cranberry, coffee and grapefruit, fall precautions, regular diet and full cope. Upon assessment, pt reports anxiety, reports feeling irritable, noted to be fidgeting unable to sit still, pt reports feeling restless, respirations even/unlabored, denies SOB/chest pain, denies n/v/d, medications due. Pt is scheduled for discharge tomorrow. Safety measures in place, call light within reach, side rails up x2, bed locked and in low position. Will continue to monitor.
[2017-02-23] MEDS: QUETIAPINE FUMARATE 200 MG TABLET PO SCH (21:39)
[2017-02-23] MEDS: OLANZAPINE ZYDIS 5 MG TAB.RAPDIS PO SCH (21:39)
--- NOTE | 2017-02-24 | NUR ---
COWS deferred d/t pt sleeping - to assess while pt is awake as ordered. Pt refused to wake up for 0000 VS Safety measures in place, will continue to monitor.
--- NOTE | 2017-02-24 04:00 | NUR ---
COWS deferred d/t pt sleeping - to assess while pt is awake as ordered. Pt refused to wake up for [address], will continue to monitor.
--- NOTE | 2017-02-24 07:00 | NUR ---
End of Shift Pt is a 21 year old male admitted for Heroin/meth dependence, placed on 4 day Subutex taper, completed. Pt reported use of Heroin IV 1g/daily and Methamphetamine 0.5-1g/daily. PMH: Insomnia. Pt reports allergies to cranberry, coffee and grapefruit, fall precautions, regular diet and full cope. During shift, pt reported anxiety, reported feeling irritable, noted to be fidgeting unable to sit still, pt reports feeling restless scheduled medications administered COWS 4. No PRN medications administered during shift, pt is scheduled for discharged today. Pt slept for 8 hours, intake of 1535ml PO, voids x3 and stool x0. Safety measures in place, call light within reach, side rails up x2, bed locked and in low position. Endorsed to day shift nurse.
--- NOTE | 2017-02-24 07:05 | NUR ---
Start of Shift Endorsement received from nightshift nurse. Pt is a 21 y/o male admitted for Heroin and methamphetamine dependence. Pt has been placed on a 4 day modified Subutex taper. Pt has completed the taper and has been scheduled to be discharged today. PT is tolerating the detox process and mildly withdrawing AEB COWS 4 at 0400. Pt did not receive any PRN medications. All discharge education has been provided. All discharge documentation has been completed. Pt reports readiness for discharge. VS WNL. Full Code. PT is alert and oriented x4. Pt is in STABLE condition at this time. Remains compliant with medication and diet regimen. All needs have been met, All safety measures in place per hospital policy. Bed in lowest position, side rails up x2, call-light within reach. Will continue to monitor
[2017-02-24 08:00] VITALS: BP 121/78
[2017-02-24] MEDS: GABAPENTIN 300 MG CAPSULE PO SCH (08:56)
[2017-02-24] MEDS: QUETIAPINE FUMARATE 100 MG TABLET PO SCH (08:56)
[2017-02-24 12:00] VITALS: BP 125/71
--- NOTE | 2017-02-24 12:30 | NUR ---
Discharge note PT has been discharged from [facility] PT is in Stable condition, VS WNL. Denies suicidal and homicidal ideations at this time. . All documentation has been completed, paperwork signed and dated. Pt left with all of his belongings, medications and prescriptions. Pt has been discharged from [facility] on 02/24/17 at 1230. has been Notified.
== END 2017-02-24 12:39 | disposition home or self-care (01) | DRG 895 ==
LOC: SRC 15:34
PROVIDERS: ADMIT Internal Medicine; ATTEND Internal Medicine
PROC: HZ2ZZZZ Detoxification Services for Substance Abuse Treatment (ICD-10-PCS; principal; 2017-02-19)
PROC: HZ41ZZZ Group Counseling for Substance Abuse Treatment, Behavioral (ICD-10-PCS; 2017-02-20)
PROC: HZ31ZZZ Individual Counseling for Substance Abuse Treatment, Behavioral (ICD-10-PCS; 2017-02-21)
DX: F11.23 Opioid dependence with withdrawal (principal); N17.9 Acute kidney failure, unspecified; E87.3 Alkalosis; F39 Unspecified mood [affective] disorder; F15.220 Other stimulant dependence with intoxication, uncomplicated; Z59.0 Homelessness; Z81.1 Family history of alcohol abuse and dependence; G47.00 Insomnia, unspecified; Z79.899 Other long term (current) drug therapy; E86.0 Dehydration; F17.210 Nicotine dependence, cigarettes, uncomplicated; R73.9 Hyperglycemia, unspecified; Z59.1 Inadequate housing
CPT/HCPCS: 36415; 70030-TC; 80307; 80324; 80361; 83735; 85025; 86580; 86592; 86705; 86803; 87340; 87806; G0480; J2405; J7030; Q0162